=== PATIENT | female | born 1980 | race African-American/Black ===

== ENCOUNTER 2019-11-10 09:19 | Emergency (ER) | payer MEDICAID ==
[~2019-11-10] VITALS: Ht 170.2 cm; Wt 122.0 kg
[~2019-11-10 09:19] MED LIST: PROZAC; [UNRECOGNIZED DRUG - OTHER]
[2019-11-10] MEDS ORDERED: IBUPROFEN 600MG TABLET PO ONE (11:15)
[2019-11-10 12:13] VITALS: BP 118/69
== END 2019-11-10 12:16 | disposition home or self-care (01) ==
LOC: ER 09:29
DX: S83.8X2A Sprain of other specified parts of left knee, initial encounter (principal); V49.49XA Driver injured in collision with other motor vehicles in traffic accident, initial encounter; Y93.89 Activity, other specified; Y92.89 Other specified places as the place of occurrence of the external cause; Y99.8 Other external cause status; Z98.890 Other specified postprocedural states; Z88.2 Allergy status to sulfonamides
CPT/HCPCS: 73562; 81025; 99283